=== PATIENT | female | born 1965 | race Two or more races ===

== ENCOUNTER 2018-05-18 17:20 | Outpatient (CLI) | payer OTHER | END 2018-05-18 17:25 | disposition home or self-care (01) | LOC: RAD 17:20 | DX: M25.541 Pain in joints of right hand (principal); M25.542 Pain in joints of left hand; M79.622 Pain in left upper arm; M25.512 Pain in left shoulder; W10.1XXA Fall (on)(from) sidewalk curb, initial encounter ==

== ENCOUNTER 2018-05-26 08:56 | Outpatient (CLI) | payer OTHER | END 2018-05-26 09:10 | disposition home or self-care (01) | LOC: RAD 501 08:56 | DX: M25.522 Pain in left elbow (principal) ==

== ENCOUNTER 2018-06-02 11:47 | Outpatient (CLI) | payer OTHER | END 2018-06-02 11:54 | disposition home or self-care (01) | LOC: RAD 501 11:47 | DX: S52.125A Nondisplaced fracture of head of left radius, initial encounter for closed fracture (principal) ==